=== PATIENT | female | born 1990 ===

== ENCOUNTER 2018-04-12 20:02 | Emergency (ER) | payer MEDICAID ==
[2018-04-12] MEDS ORDERED: Dexamethasone 4 mg/1 ml IVP STA (20:38)
[2018-04-12] MEDS ORDERED: Sodium Chloride 0.9% 500 ML IV STA (20:39)
[2018-04-12] MEDS ORDERED: Sodium Chloride 0.9% 500 ML IV ONE (20:49)
--- NOTE | 2018-04-12 21:22 | C.PDOC ---
History Of Present Illness 27yo female, currently status post tonsillectomy done by Dr. Carter, comes to ER with complaints of throat pain. She states she has been unable to swallow, including her saliva. She has been taking liquid pain medications but feels like it is "coming out of my nose." Otherwise, she denies any fever, headache, neck pain or neck stiffness. Patient offers no additional medical complaints. Time Seen by Provider: 04/12/18 20:19 Chief Complaint (Nursing): ENT Problem History Per: Patient History/Exam Limitations: None Onset/Duration Of Symptoms: Days Quality (Mouth/Throat): Swelling Past Medical History Reviewed: Historical Data, Nursing Documentation, Vital Signs Vital Signs: Last Vital Signs Temp 99.1 F 04/12/18 23:36 Pulse 77 04/12/18 23:36 Resp 20 04/12/18 23:36 BP 101/68 04/12/18 23:36 Pulse Ox 95 04/12/18 23:36 - Medical History PMH: Asthma (NEVER HOSPITALIZED), Gastritis (NO LONGER ON MED.), Migraine, Rheumatoid Arthritis Denies: Chronic Kidney Disease Surgical History: Endoscopy, Tonsillectomy Family History: States: No Known Family Hx - Social History Hx Alcohol Use: No Hx Substance Use: No Review Of Systems Except As Marked, All Systems Reviewed And Found Negative. Constitutional: Negative for: Fever, Chills ENT: Positive for: Throat Pain Musculoskeletal: Negative for: Neck Pain Neurological: Negative for: Headache Physical Exam - Physical Exam Appears: Non-toxic, No Acute Distress Skin: Warm, Dry Head: Atraumatic, Normacephalic Eye(s): bilateral: Normal Inspection Ear(s): Bilateral: Normal Oral Mucosa: Moist, No Drooling, No Other (swelling of floor of mouth ) Tongue: Normal Appearing, No Swelling Lips: Normal Appearing, No Swelling Throat: Exudate (exudates noted to uvula and at sites of tonsillectomy), No Drooling, No Mass, Other (+edematous uvula, uvula is midline) Neck: Normal ROM, Supple, No Other (meningismus) Chest: Symmetrical Cardiovascular: Rhythm Regular Respiratory: Normal Breath Sounds Neurological/Psych: Oriented x3, Normal Speech, Normal Cognition, Normal Motor, Normal Sensation ED Course And Treatment O2 Sat by Pulse Oximetry: 97 (RA) Pulse Ox Interpretation: Normal Progress Note: Case discussed with Dr. Carter, who recommends IV Decadron and observe in ER for a couple hours. Reassessment Condition: Improved (Pt is able to take and tolerate ice water in the ER with no regurgitation. VSS, afebrile. Pt will d/c home to continue liquid pain meds and follwo diet instructions given after surgery and to return to ER if symptoms worsen or if bleeding, severe pain, fever or worse) Disposition - Disposition Referrals: Eleazar Carter MD [Staff Provider] - Disposition: HOME/ ROUTINE Disposition Time: 00:43 Condition: IMPROVED Additional Instructions: Take fluids- Small amount at a time \\ Continue pain medications prescribed,, or call dr Carter tomorrow if ok to take liquid motrin Prescriptions: PrednisoLONE [Prelone] 40 mg PO DAILY #1 bottle Instructions: Sore Throat, Adult (DC) Forms: [employer] (Greenlandic) - Clinical Impression Clinical Impression: Post-tonsillectomy pain - PA / FREIGHT SEPARATOR / Resident Statement MD/DO has reviewed & agrees with the documentation as recorded. - Scribe Statement The provider has reviewed the documentation as recorded by the Nimco Bonilla Provider Attestation: All medical record entries made by the Nimco were at my direction and personally dictated by me. I have reviewed the chart and agree that the record accurately reflects my personal performance of the history, physical exam, medical decision making, and the department course for this patient. I have also personally directed, reviewed, and agree with the discharge instructions and disposition.
[2018-04-12 23:37] VITALS: BP 101/68; PULSE 77; RESP 20; TEMP 99.1
[2018-04-13 00:43] VITALS: O2SAT 97
== END 2018-04-13 00:55 | disposition home or self-care (01) ==
LOC: MERGE 20:02 → C.ER 20:02
DX: G89.18 Other acute postprocedural pain (principal)
CPT/HCPCS: 96361; 96374; 96375; 99284; J1100; J1885; J7040